=== PATIENT | male | born 1950 | race Caucasian/White ===

== ENCOUNTER → 2021-01-03 | Day surgery (SDC) | payer MEDICARE, OTHER ==
[2020-12-26 13:43] LABS: BASOPHILS % (AUTO) 0.6 % (0-1); EOSINOPHILS # (AUTO) 0.1 X10'3 (0-0.9); EOSINOPHILS % (AUTO) 1.9 % (0-6); LYMPHOCYTES # (AUTO) 1.4 X10'3 (1.1-4.8); MEAN CORPUSCULAR HEMOGLOBIN 30.9 PG (27.0-31.0); MEAN CORPUSCULAR HGB CONC 33.1 g/dL (33.0-36.5); MEAN CORPUSCULAR VOLUME 93.2 FL (78-98); MEAN PLATELET VOLUME 7.9 FL (7.4-10.4); MONOCYTES # (AUTO) 0.8 X10'3 (0-0.9); MONOCYTES % (AUTO) 12.3 % (2-12); NEUTROPHILS # (AUTO) 4.4 X10'3 (1.8-7.7); NEUTROPHILS % (AUTO) 64.2 % (42-75); PRE OP HEMATOCRIT 46.6 % (42.0-52.0); PRE OP HEMOGLOBIN 15.4 g/dL (14.0-17.9); PRE OP PLATELET COUNT 179 X10'3 (140-440); RED CELL DISTRIBUTION WIDTH 13.6 % (11.5-14.5)
[2020-12-26 13:59] LABS: ALBUMIN 3.9 G/DL (3.4-5.0); ALKALINE PHOSPHATASE 85 IU/L (46-116); BLOOD UREA NITROGEN 21 MG/DL (7-18); BUN/CREATININE RATIO 16.9 (5.4-32.0); CALCIUM 8.8 MG/DL (8.5-10.1); CHLORIDE 105 MMOL/L (99-107); CREATININE 1.24 MG/DL (0.60-1.10); PRE OP ALT 16 U/L (30-65); PRE OP ANION GAP 9 (8-16); PRE OP AST 12 U/L (10-37); PRE OP BILIRUB, TOTAL 0.5 MG/DL (0.0-1.0); PRE OP GLUCOSE 91 MG/DL (70-104); PRE OP POTASSIUM 4.2 MMOL/L (3.4-5.1); PRE OP SODIUM 144 MMOL/L (135-145); TOTAL CARBON DIOXIDE 30.1 MMOL/L (24-32); TOTAL PROTEIN 7.9 G/DL (6.4-8.2); eGFR 57 ML/MIN
[~2021-01-03] VITALS: Ht 170.2 cm; Wt 81.2 kg
[2021-01-03] VITALS (19 sets, daily range): BP systolic 109–151; BP diastolic 52–89
[~2021-01-03] MED LIST: 0.9 % SODIUM CHLORIDE 10 ML VIAL ONE; AMLO5TAB16 PO; ATOR10TA70 PO; BUPIVAcaine/PF 2.5mg/ml (0.25%) 10ml vial ONE; LIDOcaine 1% (10mg/ml) 2ml vial ONE; LIDOcaine 2% (20mg/ml) 5ml vial ONE; ROPIVAcaine 0.5% (5mg/ml) 30ml vial ONE; acetaminophen 1,000mg/100ml IV 100 ML IV PRN; cefazolin/dext.iso 2gm/100ml IV ONE; cloNIDine hcl/PF 100mcg/ml inj ONE; dexamethasone sod phosphate 4mg/ml inj. ONE; ePHEDrine 50MG/ML INJ. ONE; famotidine 20mg tablet PO ONE; fentaNYL/PF 50MCG/1 ML 2ML syringe ONE; glycopyrrolate 0.2mg/ml inj ONE; hydrALAZINE 20mg/ml inj. IV PRN; labetalol 20mg/4ml (5mg/ml) syringe IV PRN; meperidine/PF 25mg/ml syringe IV PRN; methylPREDNISolone sod succ 125mg/2ml vial ONE; midazolam 1 mg/ML 2ml injection ONE; morphine 2 MG/ML inj. syringe IV PRN; morphine 4 MG/ML inj SYRINge IV PRN; ondansetron/PF 4mg/2ml inj IV PRN; ondansetron/PF 4mg/2ml inj ONE; proCHLORperazine 10 MG/2 ml inj IV PRN; propofol inj 20 ML IV ONE; ringers solution, lacted 1,000 ML IV SCH; sevoflurane 250ml liquid IH ONE; vancomycin 1,500 MG in NS 300ml IV soln IV ONE
--- NOTE | 2021-01-03 10:50 | NUR ---
Received from OR via , accompanied by Anesthesiologist DR MUIR and report given by Anesthesiolgist. PT PRESENTS WITH PIV 20 G LEFT FOREARM, LEFT LOWER LEG DRESING DRY AND INTACT. VSS. Addendum: 01/03/21 at 1102 by Tamra Peng RN, RN Amended: Links added.
--- NOTE | 2021-01-03 12:50 | NUR ---
PT BLADDER SCANNE ITATH 546 CC IN BLADDER. Addendum: 01/03/21 at 1412 by Tamra Peng RN RN Amended: Links added.
--- NOTE | 2021-01-03 13:00 | NUR ---
DISCHARGE CRITERIA MET, DISCHARGE INSTRUCTIONS GIVEN, DEMONSTRATES VERBAL UNDERSTANDING. DISCHARGED HOME IN GOOD CONDITION. Addendum: 01/03/21 at 1403 by Tamra Peng RN, RN Amended: Links added.
--- NOTE | 2021-01-03 13:00 | NUR ---
PT AT BEDSIDE EVALUATING PT PER DR TURNER, PT SENT HOME WITH A AFO BRACE FOR LEFT FOOT. PT UP TO THE BATHROOM WITH 400 ML URINE OUTPUT. Addendum: 01/03/21 at 1411 by Tamra Peng RN, RN Amended: Links added.
== END | disposition home or self-care (01) ==
LOC: PAS 08:45
PROVIDERS: ATTEND Orthopaedic Surgery
DX: G57.32 Lesion of lateral popliteal nerve, left lower limb (principal); M71.22 Synovial cyst of popliteal space [Baker], left knee; E66.8 Other obesity; Z68.30 Body mass index [BMI] 30.0-30.9, adult; M17.0 Bilateral primary osteoarthritis of knee; G47.33 Obstructive sleep apnea (adult) (pediatric); I10 Essential (primary) hypertension; Z98.890 Other specified postprocedural states; Z79.899 Other long term (current) drug therapy; Z85.810 Personal history of malignant neoplasm of tongue
CPT/HCPCS: 27345; 36415; 64445; 64708; 76942; 80053; 82948; 85025; 93005; 97116; 97161; J0735; J1100; J2001; J2250; J2405; J2704; J2930; J3010; J3370; J3490; J7040; 88304; A4215; A4618; A6250; A6449; A7000; J2795; J7120